=== PATIENT | male | born 1955 | race Two or more races ===

== ENCOUNTER 2024-12-03 09:13 | Inpatient (IN) | payer MEDICARE, MEDICAID, SELFPAY ==
[2024-12-03] VITALS (9 sets, daily range): BP systolic 121–154; BP diastolic 76–92; PULSE 68–99; RESP 15–99; TEMP 36.7–37; O2SAT 95–99; BMI 28.1; BMI 29.5
--- NOTE | 2024-12-03 10:06 | EDNOTE_ITS ---
ED Extremity Problem RME/HPI General Chief complaint: General Adult/[facility] Complain Stated complaint: SEVERE R) LEG CELLULITIS X 2 YRS Time Seen by Provider: 12/03/24 09:55 Arrival date/time: 12/03/24 09:13 RME / HPI RME / HPI Narrative: 69 year old male presents to the ED for evaluation of right lower extremity redness, pain, and swelling. The patient reports that these symptoms have been ongoing for approximately two years; however, he notes that the redness has worsened over the past two months. In addition to the redness, the patient reports experiencing significant pain, primarily localized behind the calf, which he describes as nerve pain. The pain is rated as moderate to severe and is aggravated by walking. The patient states that the pain was notably worse last night, prompting ED visit. No other associated symptoms. Denies fever, chills. The patient denies any trauma or injury to the affected leg. The patient has a history of similar symptoms and was previously evaluated for this issue about four months ago. At that time, he was diagnosed with cellulitis and was prescribed a course of antibiotics, which he completed. However, he reports that his symptoms have recurred, and despite the prior treatment, the condition has persisted and worsened over time. Related Data Previous Rx's ?Medication ?Instructions ?Recorded docusate sodium 100 mg capsule 100 mg PO BID #40 caps 05/25/22 (Colace) hydrocodone 5 mg-acetaminophen 325 1 tab PO Q6H PRN pa in (scale score 05/25/22 mg tablet 7-10) #28 tabs ibuprofen 600 mg tablet 600 mg PO Q8H PRN pain (scal e 05/25/22 score 4-6) #15 tabs albuterol sulfate 90 mcg/actuation 2 puff INH TID #1 i nh 06/01/22 aerosol inhaler clindamycin HCl 300 mg capsule 300 mg PO Q8H #12 caps 06/01/22 lactobacillus combination no.9 4 4,000 mmu cells PO QD AY #7 caps 06/01/22 billion cell capsule (Adult 50 Plus Probiotic) acetaminophen 500 mg capsule 1,000 mg (2 x 500 mg) PO TID #30 08/30/23 caps dextromethorphan-guaifenesin 10 10 ml PO Q8H PRN cough #500 mL 08/30/23 mg-100 mg/5 mL oral liquid clindamycin HCl 300 mg capsule 300 mg PO QID #40 caps 11/08/23 Allergies Allergy/AdvReac Type Severity Reaction Status Date / Time aspirin Allergy Severe rash Verified 12/03/24 10:38 Penicillins Allergy Severe hives Verified 12/03/24 10:38 Review of Systems Review of Systems Narrative Review of Systems: GEN: No fever, no chills, no weight loss EYES: No discharge, no visual changes, no pain HEENT: No ear pain, no congestion, no sore throat PULM: No shortness of breath, no cough, no congestion CV: No chest pain, no dyspnea on exertion, no palpitations GI: No nausea, no vomiting, no diarrhea, no pain, no constipation : No frequency, no urgency, no dysuria MUSC/SKEL: +SEE HPI, no back pain SKIN: No rash NEURO: No weakness, no headache Past Medical History Past Medical History GASTROINTESTINAL: Positive Gastrointestinal Disorders, Hepatitis and Ulcer ENDOCRINE: Positive Hypoglycemia PSYCHO/SOCIAL: Positive Depression OTHER HISTORY: Positive Hospitalization Family History FAMILY HISTORY: Positive Family Cardiac Disorders and Family Cancer Surgical History SURGICAL: Positive Abdominal Surgery Social History SMOKING STATUS: Current every day smoker 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 OCCUPATION: retired automobile glass technician ED Exam General General appearance: Present alert and in no apparent distress Head Head exam: Present atraumatic, normocephalic and normal inspection Eye Eye exam: Present normal appearance and EOMI ENT ENT exam: Present normal exam, normal oropharynx and mucous membranes moist Neck Neck exam: Present normal inspection and full ROM Chest Chest inspection: Present normal inspection and symmetric chest wall rise Respiratory Respiratory exam: Present normal lung sounds bilaterally Cardiovascular Cardiovascular exam: Present regular rate and normal rhythm Abdominal Exam Abdominal exam: Present soft and other (healed hernia scar on the right lower abdomen) exam: Present normal testicular lie and other (uncircumcised) Extremities Exam Extremities exam: Present other (venous stasis changes BLE R>L, RLE with venous stasis changes being thickened, bright erythema with heat to the posterior distal thigh, tenderness to palpation of the superior anterior RLE) Course Quality Measures none Orders Category Date Time Status COVID-19 Screening Questionnaire NOW Care 12/03/24 13:34 Active Decision to Admit X1 Care 12/03/24 13:34 Completed Insert IV NOW Care 12/03/24 09:40 Active US venous doppler LE RT Stat Exams 12/03/24 10:36 Completed XR tibia fibula RT 2V Stat Exams 12/03/24 10:36 Completed Blood Culture (Lab) Stat Lab 12/03/24 10:31 Received CBC Stat Lab 12/03/24 10:31 Completed CMP [Comprehensive Metabolic Panel] Stat Lab 12/03/24 10:31 Completed CRP [C-Reactive Protein] Stat Lab 12/03/24 10:31 Completed Drug Screen,Urine Stat Lab 12/03/24 13:30 Completed ESR [Sed Rate (ESR)] Stat Lab 12/03/24 10:31 Completed Lactic Acid [Lactate (Lactic Acid)] Stat Lab 12/03/24 10:31 Completed PT [Prothrombin Time with INR] Stat Lab 12/03/24 10:31 Completed PTT [Partial Thromboplastin Time] Stat Lab 12/03/24 10:31 Completed Procalcitonin Stat Lab 12/03/24 10:31 Completed Clindamycin 900Mg Ivpb [Cleocin/D5w Ivpb] 900 mg Med 12/03/24 10:36 Discontinued Pre-Mixed [Pre-mixed Bag] 1 bag IV X1 Vancomycin Inj 1,500 mg Med 12/03/24 10:36 Discontinued Sodium Chloride 0.9% 500 ml [Ns] 500 ml IV X1 Vital Signs Vital signs: Vital Signs Temperature 98.1 F 12/03/24 09:34 Pulse Rate 99 12/03/24 09:34 Respiratory Rate 18 12/03/24 09:34 Blood Pressure 131/85 H 12/03/24 09:34 Pulse Oximetry (%) 97 12/03/24 09:34 Oxygen Delivery Method Room Air 12/03/24 09:34 Pulse ox is 97% on room air which is adequate. Extremity Problem MDM Narrative MDM Narrative:: Rosey Sidhu am scribing for and in the presence of Dr. Silva. Patient data External records reviewed:: [facility] previous records (I reviewed ED visit on 07/24/2024 for cellulitis ) Clinical information provided by:: patient Social determinants that could affect healthcare access:: none Patient has the following chronic illnesses:: hx of cellulitis in the RLE, no other chronic medical hx reported How is presenting disease/condition affected by chronic disease/condition?: exacerbated by Evaluation data The following diagnostics were reviewed and interpreted by me:: lab results and radiology exam(s) Lab and/or radiology exams considered but not ordered:: None Interpretation Summary: Ordering Physician: Singh Silva MD Date of Service: 12/03/24 Procedure(s): XR tibia fibula RT 2V Accession Number(s): [id number] cc: Singh Silva MD; Tim Perales MD; Negro Ramos MD~ Examination: Tibia-Fibula, right , 2 views Technique: Tibia-fibula AP lateral 2 views Date and time of exam: December 03, 2024 0946 hours Comparison November 08, 2023 INDICATIONS: Right leg pain today. FINDINGS: Moderate osteopenia Bimalleolar soft tissue swelling No fracture. No cortical bone destruction IMPRESSION: No fracture. No cortical bone destruction Dictated By: Negro Ramos MD Signed By: <Electronically signed by Negro Ramos MD in [place]> 12/03/24 1108 ========= Ordering Physician: Singh Silva MD Date of Service: 12/03/24 Procedure(s): US venous doppler LE RT Accession Number(s): [id number] cc: Singh Silva MD; Tim Perales MD; Negro Ramos MD~ Examination: Duplex scan of the lower extremity, unilateral right Date and time of exam: December 03, 2024 at 1114 hours INDICATIONS: Lower leg pain and discoloration beginning 2 months ago Technique: Duplex scan of the extremity veins using B-mode/grayscale imaging and Doppler spectral analysis and color flow Attention is directed to internal echogenicity, compression and augmentation involving these veins, color flow assessment, spectral analysis Findings: Major deep venous structures in the extremity demonstrate normal course and caliber. There is no evidence of deep vein thrombosis. Normal color flow and spectral analysis Impression: Negative for DVT.. Dictated By: Negro Ramos MD Signed By: <Electronically signed by Negro Ramos MD in [place]> 12/03/24 1151 Medications / Prescriptions Medications or Prescriptions considered but not ordered:: None Medication administrations:: Medication Administration History Acetaminophen (Acetaminophen 325 Mg Tablet) 650 mg PO Q6H PRN PRN Reason: Fever >101.5 Stop: 01/02/25 13:54 Acetaminophen (Acetaminophen 325 Mg Tablet) 650 mg PO Q6H PRN PRN Reason: PAIN SCALE 1-3 (mild Stop: 01/02/25 13:54 Docusate Sodium (Docusate Sod 100 Mg Capsule) 100 mg PO QDAY SRAVANTHI; Protocol Stop: 01/03/25 08:59 Heparin Sodium (Porcine) (Heparin Sod Inj 5000 Unit/Ml Vial) 5,000 unit SC Q8HR SRAVANTHI Stop: 12/17/24 13:59 Last Admin: 12/03/24 14:13 Dose: 5,000 unit Documented By: BD Co-signed By: EVON Ceftriaxone Sodium/Dextrose (Rocephin/D5w 1gm Iv Premix) 50 mls @ 100 mls/hr IV QDAY SRAVANTHI Stop: 12/10/24 13:59 Last Infusion: 12/03/24 15:20 Dose: Infused Documented By: Admin: 12/03/24 14:34 Dose: 100 mls/hr Documented By: NAHEED Nicotine (Nicotine Patch 21 Mg/24 Hr Patch.Td24) 21 mg TOP QDAY SRAVANTHI Stop: 01/02/25 14:29 Last Admin: 12/03/24 14:45 Dose: 21 mg Documented By: NAHEED Ondansetron HCl (Ondansetron Inj 2 Mg/Ml Inj 2 Ml) 4 mg IV Q6H PRN; Protocol PRN Reason: NAUSEA OR VOMITING Stop: 01/02/25 13:54 Pharmacy Consult (Vancomycin Pharmacy To Dose 1 Each Each) 1 each IV QDAY PRN PRN Reason: CONSULT Stop: 01/03/25 08:59 Discontinued Medications Clindamycin Phosphate 900 mg/ (IV Miscellaneous Supplies) 50 mls @ 50 mls/hr IV X1 ONE Stop: 12/03/24 11:35 Last Infusion: 12/03/24 11:41 Dose: Infused Documented By: Admin: 12/03/24 11:06 Dose: 50 mls/hr Documented By: [facility]ST Vancomycin HCl 1,500 mg/ (Sodium Chloride) 500 mls @ 240 mls/hr IV X1 ONE Stop: 12/03/24 12:40 Last Infusion: 12/03/24 14:27 Dose: Infused Documented By: Admin: 12/03/24 11:41 Dose: 240 mls/hr Documented By: [facility] Influenza Virus Vaccine Quadrival (Influenza Virus Quadrivalent 0.5 Ml Syringe) 0.5 ml IMi .ONCE ONE Stop: 12/03/24 16:41 See above Consultations Consultation(s) initiated? (list below): Yes Consultation #1 (Physician, Specialty, Details): I spoke with resident Dr. Ureña working with Dr. Holt. Discussed patients PMHx, HPI, ED course, exam findings, labs, and radiology results. Will come evaluate the patient in the ED. Time: 13:04 Diagnosis Extremity Problem Differential Diagnosis: gout, cellulitis, superficial thrombophlebitis, lower extremity edema and deep vein thrombosis of lower extremity Most likely diagnosis given after review of the tests above:: RLE cellulitis RLE pain venous dermatitis BLE, R>L Admission Indicated Admission indicated?: indicated Admission Request Was there a request for admission?: Yes Admission Attestation Admission request attestation: Discussed case with [] from Hospitalist service regarding admission. Discussed patients ED course, exam findings, labs, and radiology results. The Hospitalist [agrees,declines] to accept the patient for admission. Disposition Plan Disposition Plan: Admit Discharge Plan Plan Patient Disposition: Admit Acute Care w/in Hospital Problem List Clinical Impression: Cellulitis of right lower extremity, Lower extremity pain, right, Venous stasis dermatitis of both lower extremities
--- NOTE | 2024-12-03 10:17 | PC.NURSE ---
PT DOES NOT WANT IN NARCOTIC PAIN MEDS DUE TO HX DRUG USE AND IS IN RECOVERY
--- NOTE | 2024-12-03 10:35 | PC.NURSE ---
PT CAME IN THROUGH LOBBY DUE TO REDNESS TO RIGHT LOWER LEG, HE HAS SOME VENOUS STASIS TO LOWER LEG WITH SCALING AND DISCOLOARITION, LEG IS RED AND WARM TO TOUCH WITH SWELLING THAT EXTENDS UP TO KNEE
--- NOTE | 2024-12-03 10:36 | XR_ITS ---
Examination: Tibia-Fibula, right , 2 views Technique: Tibia-fibula AP lateral 2 views Date and time of exam: December 03, 2024 0946 hours Comparison November 08, 2023 INDICATIONS: Right leg pain today. FINDINGS: Moderate osteopenia Bimalleolar soft tissue swelling No fracture. No cortical bone destruction IMPRESSION: No fracture. No cortical bone destruction
--- NOTE | 2024-12-03 10:36 | XR_ITS ---
Examination: Duplex scan of the lower extremity, unilateral right Date and time of exam: December 03, 2024 at 1114 hours INDICATIONS: Lower leg pain and discoloration beginning 2 months ago Technique: Duplex scan of the extremity veins using B-mode/grayscale imaging and Doppler spectral analysis and color flow Attention is directed to internal echogenicity, compression and augmentation involving these veins, color flow assessment, spectral analysis Findings: Major deep venous structures in the extremity demonstrate normal course and caliber. There is no evidence of deep vein thrombosis. Normal color flow and spectral analysis Impression: Negative for DVT..
[2024-12-03 10:40] LABS: Lactate (Lactic Acid) 1.6 mMol/L (0.4-2.0)
[2024-12-03 10:46] LABS: Basophils % (Auto) 0 % (0-2.5); Eosinophils % (Auto) 0 % (0-10); Hematocrit 42.9 % (41.0-53.0); Hemoglobin 14.5 g/dL (13.5-16.0); Immature Granulocytes % (Auto) 0 % (0-0); Immature Granulocytes Auto 0.03 Thou/mm3 (0.00-0.00); Lymphocytes # (Auto) 1.2 Thou/mm3 (1.0-4.8); Lymphocytes % (Auto) 10 % (10-50); Mean Corpuscular HGB Conc 33.8 g/dl (31.0-37.0); Mean Corpuscular Hemoglobin 30.5 pg (25.0-35.0); Mean Corpuscular Volume 90 fL (80-100); Monocytes # (Auto) 0.8 Thou/mm3 (0.0-0.8); Monocytes % (Auto) 6 % (0-12); Neutrophils # (Auto) 10.4 Thou/mm3 (1.8-7.7); Neutrophils % (Auto) 84 % (37-80); Nucleated Red Blood Cell % 0 /100 WBC (0); Platelet Count 167 Thou/mm3 (140-440); RDW Standard Deviation 45.3 fL (35.1-43.9); Red Blood Count 4.75 Miln/mm3 (4.50-5.90); White Blood Count 12.5 Thou/mm3 (3.8-10.6)
[2024-12-03 10:57] LABS: INR 1.1 (0.9-1.3); Partial Thromboplastin Time 27.6 Seconds (22.0-36.0); Prothrombin Time 11.7 Seconds (9.0-12.2)
[2024-12-03] MEDS: CLINDAMYCIN 900MG IVPB 900 MG in PRE-MIXED 1 BAG 50 MG IV (11:06)
[2024-12-03 11:08] LABS: Alanine Aminotransferase 20 U/L (10-49); Albumin, Serum 3.9 gm/dL (3.4-4.8); Albumin/Globulin Ratio 1.1 (1.2-2.2); Alkaline Phosphatase 175 U/L (46-116); Anion Gap 8 (7-16); Aspartate Amino Transferase 26 U/L (0-34); BUN/Creatinine Ratio 10 Ratio (12-20); Bilirubin,Total 0.9 mg/dL (0.3-1.2); Blood Urea Nitrogen 13 mg/dL (9-23); C-Reactive Protein 6.1 mg/dL (0.0-0.9); Calcium 9.4 mg/dL (8.3-10.6); Calcium (Corrected) 9.5 mg/dL (8.5-10.1); Carbon Dioxide 27.4 mMol/L (20.0-31.0); Chloride 99 mMol/L (98-107); Creatinine (Component) 1.3 mg/dL (0.6-1.3); Estimated Creatinine Clearance 53.3 mL/min (>60); Globulin 3.4 gm/dL (2.3-3.5); Glucose 110 mg/dL (74-106); Osmolality,Calculated 269 (275-295); Potassium 3.3 mMol/L (3.4-5.1); Procalcitonin 0.13 ng/ml (0.0-0.49); Sodium 134 mMol/L (136-145); Total Protein 7.3 gm/dL (5.7-8.2); eGFR 59 See Note
[2024-12-03 11:26] LABS: Sed Rate (ESR) 41 mm/hr (0-20)
[2024-12-03] MEDS: Vancomycin Inj 1,500 MG in SODIUM CHLORIDE 0.9% 500 ML 500 ML 240 MG IV (11:41)
[2024-12-03 13:55] LABS: Amphetamine/Methamp Scrn,U Positive (Negative); Barbiturate Screen,Urine Negative (Negative); Benzodiazepines Screen,Urine Negative (Negative); Benzoylecgonine Screen, Ur Negative (Negative); Fentanyl Screen,Urine Negative (Negative); Opiate Screen,Urine Negative (Negative); THC Screen,Urine Positive (Negative)
--- NOTE | 2024-12-03 14:11 | ESHP_ITS ---
<Statement entered by Dbeora Juarez MD - 12/04/24 05:45> Patient is a 69-year-old male with past medical history significant for polysubstance use including remote history of IV heroin, current use of methamphetamine, alcohol, marijuana, tobacco, venous insufficiency, and recurrent lower extremity cellulitis came to the ED with chief complaint of worsening lower extremity cellulitis and as a result has not been able to bear weight on his right lower extremity. Patient has been hopping around and do his daily activities. Patient states that he has been on and off his antibiotics since July with clindamycin however, patient's cellulitis has not improved. Patient presented with tachycardia otherwise vital signs hemodynamically stable. Labs significant for elevated ESR and CRP. U tox positive for methamphetamine and marijuana. X-ray of his tibia and fibula negative for any fractures and any possible signs of early osteomyelitis. Lower extremity ultrasound was also negative for any DVTs. Patient will be admitted to the hospital for further management of right lower extremity cellulitis in the setting of recent outpatient failed management requiring IV antibiotics. Will order PT and follow- up cultures I discussed with and supervised the security intern physician who took care of this patient. I personally saw and examined the patient and discussed the assessment and plan with the entire medicine team, including my attending , I agree with most of the assessment and plan as documented below Debora Juarez M.D. PGY-2 Disclaimer: Despite multiple revisions, due to the dictation software being used, the document bellow may not be free of grammatical errors including phonetic/typographic errors. However, this does not deter from our commitment to providing health care in the patient's best interest in mind. <Statement entered by Janet Silverio MD - 12/03/24 18:46> I discussed with and supervised the security intern physician who took care of this patient. I personally saw and examined the patient and discussed the assessment and plan with the entire medicine team, including my attending Dr. Holt, I agree with the assessment and plan as documented below Patient seen and examined at bedside today. Labs and imaging reviewed. 69-year-old man with past medical history of polysubstance abuse, venous insufficiency, recurrent lower extremity cellulitis came to the ED with chief complaint of worsening lower extremity cellulitis and been unable to walk. Patient stated he has been having lower extremity cellulitis on the right lower extremity for which he came to the ED 1 month ago and he received p.o. antibiotics clindamycin otherwise he stated that he became worse and that he is not able to walk for he decided to come to the ED. On admission patient blood pressure was 131/85, mildly tachycardic with a heart rate of 99 respiratory of 18 afebrile saturating 97% on room air. Significant labs showed leukocytosis, ESR 41 CRP of 6.1 and U-Tox was positive for meth and THC. Imaging show x-ray tibia and fibula were negative for osteomyelitis or fractures. Lower extremity ultrasound was negative for DVT. Patient was started on IV broad-spectrum antibiotics ceftriaxone and vancomycin and patient will be admitted for further treatment and management of right lower extremity cellulitis. Janet Silverio MD PGY-3 Disclaimer: Despite multiple revisions, due to the dictation software being used, the document bellow may not be free of grammatical errors including phonetic/typographic errors. However, this does not deter from our commitment to providing health care in the patient's best interest in mind. Documentation for date of: 12/03/24 HPI History of Present Illness Chief complaint: Cellulitis History of present illness: 69-year-old male with past medical history of polysubstance abuse who came to the ED due to worsening cellulitis. Patient has had recent ER visits for worsening cellulitis. Today 12/03/2024 however patient has been having increased swelling and redness in the right lower extremity and now unable to walk and he decided to come to the ED. Pain is more pronounced on the Right knee area is warm tender to touch however not red rest of the right lower extremity warm, swollen, red and tender. Patient at this time denies fevers, chills, nausea, vomiting, shortness of breath, chest pain. Patient will be admitted for right lower extremity cellulitis after failing outpatient antibiotic therapy. ED course: Vitals on arrival BP 10[birth year]17/1984, HR 99, RR 18, temp 98.1, saturating 97% on room air. Labs significant for leukocytosis, ESR 41, sodium 134, potassium 3.3, glucose 110, alk phos 175, CRP 6.1, U tox is positive for methamphetamine and THC. Tibia-fibula x-ray negative for osteo myelitis, no fractures, venous Doppler ultrasound negative for DVT. In the ED patient received clindamycin and vancomycin. PMHx: as above SxHx: Hernia repair Social Hx: Quit heroin use about 25 years ago, smokes 5 to 6 cigarettes every day since age 9, smokes methamphetamine every other day, occasionally drinks 2- 3 beers once a week. FHx: Unknown Allergies: Penicillin and aspirin (both cause hives) Review of Systems Review of Systems Narrative Review of Systems: Narrative ROS GENERAL: Denies fevers/chills or diaphoresis. HEENT: Denies headache or visual/hearing changes. Denies nasal discharge. NEURO: Denies unusual weakness or difficulty speaking. CARDIO: Denies chest pain or palpitations. PULM: Denies SOB, coughing, or wheezing. GI: Denies abdominal pain, N/V/C/D/reflux/gas, bright red blood per rectum or melena. Reports having BMs. URO: Denies burning/itching/pain/urinary changes. SPORTS PHYSIOTHERAPIST: Denies menstrual changes, hot flashes. MSK/EXT/SKIN: + painin RLE, + issues/changes in upper or lower extremities, itchiness, or superficial pain. PSYCH: Cooperative, pleasant mood & affect. The rest of the review of systems is otherwise negative. Exam Vital Signs Temp Pulse Resp BP Pulse Ox O2 Del Method 98.0 F 68 17 121/76 96 Room Air 12/03/24 12:16 12/03/24 12:16 12/03/24 12:16 12/03/24 12:16 12/03/24 12:16 12/03/24 12:16 Narrative Exam Physical Exam GENERAL: NAD, AAOx3, adentulous HEENT: Moist mucosa. Eyes open, symmetrical, & clear CARDIO: Heart RRR, no obvious murmurs PULM: No noted coughing/dyspnea CTA B/L, no R/W/R GI: Abdomen soft, nondistended, no pain on palpation. BSx4 SKIN/MSK/EXT: B/L lower extremity skin changes with crusting and graying, RLE warm, red, swollen and tender to touch more pronounced in the knee area, no pain on palpation. Pedal pulses present B/L NEURO: AAOx3, no focal neuro deficits, able to move all 4 extremities Results: Labs 12/04/24 04:44 12/04/24 04:44 Labs: Short CBC 12/03/24 Range/Units 10:31 WBC 12.5 H (3.8-10.6) Thou/mm3 Hgb 14.5 (13.5-16.0) g/dL Hct 42.9 (41.0-53.0) % Plt Count 167 (140-440) Thou/mm3 BMP 12/03/24 10:31 Sodium 134 L Potassium 3.3 L Chloride 99 Carbon Dioxide 27.4 BUN 13 Creatinine 1.3 Glucose 110 H Calcium 9.4 Liver Function 12/03/24 Range/Units 10:31 Total Bilirubin 0.9 (0.3-1.2) mg/dL AST 26 (0-34) U/L ALT 20 (10-49) U/L Alkaline Phosphatase 175 H (46-116) U/L Albumin 3.9 (3.4-4.8) gm/dL Quality Measures Quality Measures none Advance care planning discussed with:: patient Medications Home Medications and Allergies Allergies Allergy/AdvReac Type Severity Reaction Status Date / Time aspirin Allergy Severe rash Verified 12/03/24 10:38 Penicillins Allergy Severe hives Verified 12/03/24 10:38 Visit Medications Acetaminophen (Acetaminophen 325 Mg Tablet) 650 mg PO Q6H PRN PRN Reason: Fever >101.5 Stop: 01/02/25 13:54 Acetaminophen (Acetaminophen 325 Mg Tablet) 650 mg PO Q6H PRN PRN Reason: PAIN SCALE 1-3 (mild Stop: 01/02/25 13:54 Docusate Sodium (Docusate Sod 100 Mg Capsule) 100 mg PO QDAY [facility]; Protocol Stop: 01/03/25 08:59 Heparin Sodium (Porcine) (Heparin Sod Inj 5000 Unit/Ml Vial) 5,000 unit SC Q8HR [facility] Stop: 12/17/24 13:59 Ceftriaxone Sodium/Dextrose (Rocephin/D5w 1gm Iv Premix) 50 mls @ 100 mls/hr IV QDAY SRAVANTHI Stop: 12/10/24 13:59 Ondansetron HCl (Ondansetron Inj 2 Mg/Ml Inj 2 Ml) 4 mg IV Q6H PRN; Protocol PRN Reason: NAUSEA OR VOMITING Stop: 01/02/25 13:54 Pharmacy Consult (Vancomycin Pharmacy To Dose 1 Each Each) 1 each IV QDAY PRN PRN Reason: CONSULT Stop: 01/03/25 08:59 Discontinued Medications Clindamycin Phosphate 900 mg/ (IV Miscellaneous Supplies) 50 mls @ 50 mls/hr IV X1 ONE Stop: 12/03/24 11:35 Last Infusion: 12/03/24 11:41 Dose: Infused Vancomycin HCl 1,500 mg/ (Sodium Chloride) 500 mls @ 240 mls/hr IV X1 ONE Stop: 12/03/24 12:40 Last Admin: 12/03/24 11:41 Dose: 240 mls/hr Assessment & Plan Plan 69-year-old male with past medical history of polysubstance abuse who came to the ED due to worsening cellulitis. Patient has had recent ER visits for worsening cellulitis. Today 12/03/2024 however patient has been having increased swelling and redness in the right lower extremity and now unable to walk and he decided to come to the ED. Pain is more pronounced on the Right knee area is warm tender to touch however not red rest of the right lower extremity warm, swollen, red and tender. Patient at this time denies fevers, chills, nausea, vomiting, shortness of breath, chest pain. Patient will be admitted for right lower extremity cellulitis after failing outpatient antibiotic therapy. #Right lower extremity cellulitis, failed outpatient therapy Patient has had previous ER visits for cellulitis however at this time has progressed and worsened tried antibiotics twice and continued to worsen On admission patient had leukocytosis and on physical exam right lower extremity red, warm, tender to touch, swollen and unable to bear weight on joint. venous US negative for DVT tibiofibular XR negative for fracutres, osteomyelitis ? On ceftriaxone ? On vancomycin ? Follow-up blood cultures ? Physical therapy referral #Polysubstance abuse Patient currently smokes methamphetamine every other day, cigarettes every day ? Consider high school social studies tutor referral ? Nicotine patch provided Case discussed with my senior Dr. Juarez PGY-[address] Silverio PGY-[address] Jonathon Perales MD PGY-1 Disposition: medtele Fluids: None Feeding: regular Thrombo prophylaxis: heparin Gastric Ulcer prophylaxis: not indicated CODE STATUS: Full code Attending Provider Attestation/Addendum I have examined the patient, reviewed labs and imaging findings, discussed the case with the resident(s), and reviewed entered orders. I agree with the plan of care as outlined in this note, with these additional summaries/recommendations: Patient will be admitted for right lower extremity cellulitis. Patient failed outpatient oral antibiotic course. Leukocytosis present. Start IV antibiotics and blood cultures taken. Follow-up results when available. Venous ultrasound negative for deep vein thrombosis and x-ray showed no cortical bone destruction. Urine toxicology positive for methamphetamines and THC and we will grief counsellor patient on substance abuse. donor services team leader referral. Mild hypokalemia present and replacement given. Previous A1c 6.4% indicating prediabetes and we will grief counsellor patient on lifestyle interventions. Repeat hematology and chemistry panel in AM. Dr. Jonathon MD
[2024-12-03] MEDS: HEPARIN SOD INJ 5000 UNIT/ML VIAL SC ×2 (14:13→21:10)
[2024-12-03] MEDS: cefTRIAXone/D5w 1gm IV premix 50 ML IV (14:34)
--- NOTE | 2024-12-03 14:35 | PC.LAC ---
called pharmacy for nicotine patch
[2024-12-03] MEDS: NICOTINE PATCH 21 MG/24 HR PATCH.TD24 TOP (14:45)
[2024-12-03] MEDS: HYDROcodone/APAP 5/325 TABLET 1 TAB PO (19:51)
[2024-12-04] VITALS (8 sets, daily range): BP systolic 125–141; BP diastolic 79–84; PULSE 71–94; RESP 14–97; TEMP 36.1–36.6; O2SAT 94–96
[2024-12-04] MEDS: HYDROcodone/APAP 5/325 TABLET 1 TAB PO ×3 (03:41→21:17)
[2024-12-04] MEDS: HEPARIN SOD INJ 5000 UNIT/ML VIAL SC ×3 (05:24→21:18)
[2024-12-04 06:12] LABS: Basophils % (Auto) 0 % (0-2.5); Eosinophils # (Auto) 0.1 Thou/mm3 (0.0-0.5); Eosinophils % (Auto) 1 % (0-10); Hematocrit 42.6 % (41.0-53.0); Hemoglobin 14.5 g/dL (13.5-16.0); Immature Granulocytes % (Auto) 0 % (0-0); Immature Granulocytes Auto 0.02 Thou/mm3 (0.00-0.00); Lymphocytes # (Auto) 1.1 Thou/mm3 (1.0-4.8); Lymphocytes % (Auto) 16 % (10-50); Mean Corpuscular Hemoglobin 30.4 pg (25.0-35.0); Mean Corpuscular Volume 89 fL (80-100); Monocytes # (Auto) 0.6 Thou/mm3 (0.0-0.8); Monocytes % (Auto) 9 % (0-12); Neutrophils # (Auto) 4.9 Thou/mm3 (1.8-7.7); Neutrophils % (Auto) 73 % (37-80); Nucleated Red Blood Cell % 0 /100 WBC (0); Platelet Count 136 Thou/mm3 (140-440); Red Blood Count 4.77 Miln/mm3 (4.50-5.90); White Blood Count 6.7 Thou/mm3 (3.8-10.6)
[2024-12-04 06:48] LABS: Alanine Aminotransferase 19 U/L (10-49); Albumin, Serum 3.4 gm/dL (3.4-4.8); Albumin/Globulin Ratio 1.1 (1.2-2.2); Alkaline Phosphatase 149 U/L (46-116); Anion Gap 8 (7-16); Aspartate Amino Transferase 21 U/L (0-34); BUN/Creatinine Ratio 14 Ratio (12-20); Bilirubin,Total 0.4 mg/dL (0.3-1.2); Blood Urea Nitrogen 11 mg/dL (9-23); Calcium 8.7 mg/dL (8.3-10.6); Calcium (Corrected) 9.2 mg/dL (8.5-10.1); Carbon Dioxide 24.8 mMol/L (20.0-31.0); Chloride 103 mMol/L (98-107); Creatinine (Component) 0.8 mg/dL (0.6-1.3); Estimated Creatinine Clearance 85.6 mL/min (>60); Globulin 3.2 gm/dL (2.3-3.5); Glucose 170 mg/dL (74-106); Magnesium 1.9 mg/dL (1.6-2.6); Osmolality,Calculated 275 (275-295); Phosphorous 2.4 mg/dL (2.4-5.1); Potassium 3.8 mMol/L (3.4-5.1); Sodium 136 mMol/L (136-145); Total Protein 6.6 gm/dL (5.7-8.2); eGFR > 60 See Note
[2024-12-04] MEDS: NICOTINE PATCH 21 MG/24 HR PATCH.TD24 TOP (09:22)
[2024-12-04] MEDS: DOCUSATE SOD 100 MG CAPSULE PO (09:23)
[2024-12-04] MEDS: cefTRIAXone/D5w 1gm IV premix 50 ML IV (09:23)
--- NOTE | 2024-12-04 09:53 | PC.SS ---
Initial assessment: this is 69 year old male, appears alert/oriented. Patient reports living at home with daughter, Kathryn. Patient confirmed demographic information. Patient reports being independent with ambulation. Denies the use of DME at home. Patient informs he has not seen doctor of followed by a PCP in about five years now. Last time was at [facility] in [place] [facility]. Patient reports visiting [facility] about six months ago for similar reasons. Patient informs he would like to return home upon discharge and reports family is able to transport home. Patient was provided with community resources including substance use resources and explained how services could be accessed. Patient currently pending PT evaluation and aware. Patient assigned his daughter, Lucina as his emergency contact. D/c plan: Home Next of kin: Lucina
[2024-12-04] MEDS: MORPHINE SULF INJ 10 MG/ML VIAL IVP (10:48)
[2024-12-04] MEDS: PANTOPRAZOLE 40 MG TABLET PO (10:48)
[2024-12-04] MEDS: VANCOMYCIN/NS 1 GM IVPB 200 ML IV ×2 (10:48→21:17)
--- NOTE | 2024-12-04 12:23 | ESPR_ITS ---
<Statement entered by Debora Juarez MD - 12/04/24 17:10> Patient seen and examined at bedside. No acute overnight events reported. Continue with IV Abx and pending PT recs. Patient also complaining of pain, will continue with oral pain medications. Patient also seen presenting initial signs of methamphetamine withdrawal, and will consider Benzo PRN. I discussed with and supervised the internal sales engineer physician who took care of this patient. I personally saw and examined the patient and discussed the assessment and plan with the entire medicine team, including my attending Dr. Holt, I agree with most of the assessment and plan as documented below Debora Juarez M.D. PGY-2 Documentation for date of: 12/04/24 Subjective Subjective Interval history: Patient seen today at the bedside fine awake, alert, oriented x 3. No overnight events reported. States remarkable improvement in right lower extremity redness and swelling. States he is able to walk now. Patient also stating that he might be withdrawing from methamphetamine use. Instructed patient to give starting to feel any symptoms of withdrawal we will consider giving a short acting benzodiazepine. At this time we will continue for 1 more day of IV antibiotics and will possibly discharge in the next 24-48 hours. Exam Vital Signs Temp Pulse Resp BP Pulse Ox O2 Del Method 97.4 F 91 17 135/84 H 94 L Room Air 12/04/24 08:00 12/04/24 08:00 12/04/24 08:00 12/04/24 08:00 12/04/24 08:00 12/04/24 08:00 Narrative Exam Physical Exam GENERAL: NAD, AAOx3, adentulous HEENT: Moist mucosa. Eyes open, symmetrical, & clear CARDIO: Heart RRR, no obvious murmurs PULM: No noted coughing/dyspnea CTA B/L, no R/W/R GI: Abdomen soft, nondistended, no pain on palpation. BSx4 SKIN/MSK/EXT: B/L lower extremity skin changes with crusting and graying, RLE warm, red, swollen and tender to touch more pronounced in the knee area- improving, Pedal pulses present B/L NEURO: AAOx3, no focal neuro deficits, able to move all 4 extremities Objective Labs 12/04/24 04:44 12/04/24 04:44 Labs: Laboratory Results - last 24 hr 12/03/24 12/04/24 13:30 04:44 WBC 6.7 D RBC 4.77 Hgb 14.5 Hct 42.6 MCV 89 MCH 30.4 MCHC 34.0 RDW Std Deviation 44.0 H Plt Count 136 L D Neut % (Auto) 73 Lymph % (Auto) 16 Pacific % (Auto) 9 Eos % (Auto) 1 Baso % (Auto) 0 Neut # (Auto) 4.9 Lymph # (Auto) 1.1 [place] # (Auto) 0.6 Eos # (Auto) 0.1 Baso # (Auto) 0.0 Immature Gran # (Auto) 0.02 H Absolute Nucleated RBC 0.00 Immature Gran % 0 Nucleated RBC % 0 Sodium 136 Potassium 3.8 D Chloride 103 Carbon Dioxide 24.8 Anion Gap 8 BUN 11 Creatinine 0.8 D Estim Creat Clear Calc 85.6 eGFR > 60 BUN/Creatinine Ratio 14 Glucose 170 H D Calculated Osmolality 275 Calcium 8.7 Corrected Calcium 9.2 Phosphorus 2.4 Magnesium 1.9 Total Bilirubin 0.4 D AST 21 ALT 19 Alkaline Phosphatase 149 H D Total Protein 6.6 Albumin 3.4 D Globulin 3.2 Albumin/Globulin Ratio 1.1 L Urine Opiates Screen Negative Urine Fentanyl Screen Negative Ur Barbiturates Screen Negative U Amphetamin/Meth Scrn Positive A U Benzodiazepines Scrn Negative U Cocaine Metab Screen Negative U Marijuana (THC) Screen Positive A Quality Measures Quality Measures none Advance care planning discussed with:: patient Assessment & Plan Assessment Current Active Medications: Generic Name Dose Route Start Last Admin Trade Name Freq PRN Reason Stop Dose Admin Acetaminophen 650 mg 12/03/24 13:55 Acetaminophen 325 Mg Tablet PO 01/02/25 13:54 Q6H PRN Fever >101.5 Acetaminophen 650 mg 12/03/24 13:55 Acetaminophen 325 Mg Tablet PO 01/02/25 13:54 Q6H PRN PAIN SCALE 1-3 (mild Hydrocodone Bitart/Acetaminophen 1 tab 12/03/24 19:35 12/04/24 03:41 Hydrocodone/Apap 5/325 Tablet PO 12/08/24 19:34 1 tab Q6HR PRN Administration PAIN SCALE 4-6 (Moderate Docusate Sodium 100 mg 12/04/24 09:00 12/04/24 09:23 Docusate Sod 100 Mg Capsule PO 01/03/25 08:59 100 mg QDAY SRAVANTHI Administration Protocol Heparin Sodium (Porcine) 5,000 unit 12/03/24 14:00 12/04/24 05:24 Heparin Sod Inj 5000 Unit/Ml Vial SC 12/17/24 13:59 5,000 unit Q8HR SRAVANTHI Administration Ceftriaxone Sodium/Dextrose 50 mls @ 100 mls/hr 12/03/24 14:00 12/04/24 09:23 Rocephin/D5w 1gm Iv Premix IV 12/10/24 13:59 100 mls/hr QDAY SRAVANTHI Administration Vancomycin/Sodium Chloride 200 mls @ 120 mls/hr 12/04/24 10:00 12/04/24 10:48 Vancomycin/Ns 1 Gm Ivpb IV 12/11/24 09:59 120 mls/hr BID@1000,2200 SRAVANTHI Administration Protocol Morphine Sulfate 1 mg 12/03/24 19:35 12/04/24 10:48 Morphine Sulf Inj 10 Mg/Ml Vial IVP 12/08/24 19:34 1 mg Q4HR PRN Administration PAIN SCALE 7-10 (Severe Nicotine 21 mg 12/03/24 14:30 12/04/24 09:22 Nicotine Patch 21 Mg/24 Hr Patch.Td24 TOP 01/02/25 14:29 21 mg QDAY SRAVANTHI Administration Ondansetron HCl 4 mg 12/03/24 13:55 Ondansetron Inj 2 Mg/Ml Inj 2 Ml IV 01/02/25 13:54 Q6H PRN NAUSEA OR VOMITING Protocol Pantoprazole Sodium 40 mg 12/04/24 10:00 12/04/24 10:48 Pantoprazole 40 Mg Tablet PO 01/03/25 09:59 40 mg QDAY SRAVANTHI Administration Pharmacy Consult 1 each 12/04/24 09:00 Vancomycin Pharmacy To Dose 1 Each Each IV 01/03/25 08:59 QDAY PRN CONSULT Plan 69-year-old male with past medical history of polysubstance abuse who came to the ED due to worsening cellulitis. Patient has had recent ER visits for worsening cellulitis. Today 12/03/2024 however patient has been having increased swelling and redness in the right lower extremity and now unable to walk and he decided to come to the ED. Pain is more pronounced on the Right knee area is warm tender to touch however not red rest of the right lower extremity warm, swollen, red and tender. Patient at this time denies fevers, chills, nausea, vomiting, shortness of breath, chest pain. Patient will be admitted for right lower extremity cellulitis after failing outpatient antibiotic therapy. #Right lower extremity cellulitis, failed outpatient therapy Patient has had previous ER visits for cellulitis however at this time has progressed and worsened tried antibiotics twice and continued to worsen On admission patient had leukocytosis and on physical exam right lower extremity red, warm, tender to touch, swollen and unable to bear weight on joint. venous US negative for DVT tibiofibular XR negative for fracutres, osteomyelitis Blood cultures negative in 24 hours ? On ceftriaxone ? On vancomycin ? Physical therapy referral #Polysubstance abuse Patient currently smokes methamphetamine every other day, cigarettes every day states some feelings of withdrawal will consider giving short acting benzos - Consider prn ativan for withdrawal of meth ? Consider social science analyst referral ? Nicotine patch provided Case discussed with my senior Dr. Juarez PGY-[address] Jonathon Perales MD PGY-1 Disposition: medtele Fluids: None Feeding: regular Thrombo prophylaxis: heparin Gastric Ulcer prophylaxis: not indicated CODE STATUS: Full code Attending Provider Attestation/Addendum I have examined the patient, reviewed labs and imaging findings, discussed the case with the resident(s), and reviewed entered orders. I agree with the plan of care as outlined in this note, with these additional summaries/recommendations: Patient seen at bedside. No acute overnight events. Patient reports improvement in his lower extremity rash. Patient admitted for right lower extremity cellulitis. Patient failed outpatient oral antibiotic course. Leukocytosis improving/resolving. Continue IV antibiotics and blood cultures show no growth at 24 hours. We will await 48 hour lio for blood cultures before patient can be safely discharged. Venous ultrasound negative for deep vein thrombosis and x- ray showed no cortical bone destruction. Urine toxicology positive for methamphetamines and THC and patient counseled on substance abuse. client services assistant referral. Okay to given low dose benzo if experiencing significant methamphetamine withdrawal. Mild hypokalemia present and replacement given. Previous A1c 6.4% indicating prediabetes. Repeat hematology and chemistry panel in AM. Dr. Jonathon MD
--- NOTE | 2024-12-04 16:47 | PC.SS ---
SS update: possible d/c home tomorrow.
--- NOTE | 2024-12-04 17:46 | PC.PT ---
PT eval only. Patient is xI and does not require skilled PT intervention at this time. Patient is safe to ambulate to the bathroom and in the halls independently.
[2024-12-05] VITALS: BP 142/87; PULSE 88; RESP 19; TEMP 36.7; O2SAT 96
[2024-12-05 04:00] VITALS: BP 138/81; PULSE 84; RESP 18; TEMP 36.6; O2SAT 96
[2024-12-05] MEDS: HEPARIN SOD INJ 5000 UNIT/ML VIAL SC (05:13)
[2024-12-05] MEDS: HYDROcodone/APAP 5/325 TABLET 1 TAB PO (05:13)
[2024-12-05 06:15] LABS: Basophils # (Auto) 0.1 Thou/mm3 (0.0-0.2); Basophils % (Auto) 1 % (0-2.5); Eosinophils # (Auto) 0.2 Thou/mm3 (0.0-0.5); Eosinophils % (Auto) 3 % (0-10); Hematocrit 43.4 % (41.0-53.0); Immature Granulocytes % (Auto) 1 % (0-0); Immature Granulocytes Auto 0.03 Thou/mm3 (0.00-0.00); Lymphocytes # (Auto) 1.8 Thou/mm3 (1.0-4.8); Lymphocytes % (Auto) 27 % (10-50); Mean Corpuscular HGB Conc 34.6 g/dl (31.0-37.0); Mean Corpuscular Hemoglobin 30.5 pg (25.0-35.0); Mean Corpuscular Volume 88 fL (80-100); Monocytes % (Auto) 15 % (0-12); Neutrophils # (Auto) 3.5 Thou/mm3 (1.8-7.7); Neutrophils % (Auto) 53 % (37-80); Nucleated Red Blood Cell % 0 /100 WBC (0); Platelet Count 139 Thou/mm3 (140-440); RDW Standard Deviation 43.1 fL (35.1-43.9); Red Blood Count 4.92 Miln/mm3 (4.50-5.90); White Blood Count 6.5 Thou/mm3 (3.8-10.6)
[2024-12-05 07:35] LABS: Alanine Aminotransferase 18 U/L (10-49); Albumin, Serum 3.2 gm/dL (3.4-4.8); Alkaline Phosphatase 136 U/L (46-116); Anion Gap 8 (7-16); Aspartate Amino Transferase 20 U/L (0-34); BUN/Creatinine Ratio 13 Ratio (12-20); Bilirubin,Total 0.3 mg/dL (0.3-1.2); Blood Urea Nitrogen 10 mg/dL (9-23); Calcium 8.3 mg/dL (8.3-10.6); Calcium (Corrected) 8.9 mg/dL (8.5-10.1); Carbon Dioxide 25.6 mMol/L (20.0-31.0); Chloride 103 mMol/L (98-107); Creatinine (Component) 0.8 mg/dL (0.6-1.3); Estimated Creatinine Clearance 85.6 mL/min (>60); Globulin 3.2 gm/dL (2.3-3.5); Glucose 110 mg/dL (74-106); Magnesium 1.9 mg/dL (1.6-2.6); Osmolality,Calculated 273 (275-295); Phosphorous 3.2 mg/dL (2.4-5.1); Potassium 4.3 mMol/L (3.4-5.1); Sodium 137 mMol/L (136-145); Total Protein 6.4 gm/dL (5.7-8.2); eGFR > 60 See Note
[2024-12-05 08:00] VITALS: BP 124/63; PULSE 83; PULSE 84; RESP 16; TEMP 36.1; O2SAT 95
[2024-12-05] MEDS: MORPHINE SULF INJ 10 MG/ML VIAL IVP (08:45)
[2024-12-05] MEDS: NICOTINE PATCH 21 MG/24 HR PATCH.TD24 TOP (08:45)
[2024-12-05] MEDS: cefTRIAXone/D5w 1gm IV premix 50 ML IV (08:45)
[2024-12-05] MEDS: DOCUSATE SOD 100 MG CAPSULE PO (08:46)
[2024-12-05] MEDS: PANTOPRAZOLE 40 MG TABLET PO (08:46)
--- NOTE | 2024-12-05 09:51 | PC.SS ---
Follow up note: SS reviewed notes and PT worked with patient last on 12-04-24. Patient was independent with ambulation. No AD. Patient ambulated over 300 feet. No Skilled need. No SNF or HH needed at this time.
[2024-12-05 09:54] LABS: Vancomycin,Trough 20.8 mcg/mL (5.0-10.0)
[2024-12-05 12:00] VITALS: BP 147/87; PULSE 83; RESP 18; TEMP 35.9; O2SAT 95
--- NOTE | 2024-12-05 14:52 | ESDS_ITS ---
Planned Discharge Date 12/05/24 DS: Providers Provider Date of admission: 12/04/24 14:50 Primary care physician: Tim Perales MD Admitting Provider: Demetrius Holt MD Attending Provider on Admission: Demetrius Holt MD Consults: 12/03/24 16:50 [facility] Referral - Transportation Routine Comment: Positive screening for transportation needs. 12/04/24 09:00 Referral Physical Therapy Stat Comment: Physician Instructions: Attending Provider on DC: Demetrius Holt MD Discharging Provider: Jamaal Perales MD Anticipated date of discharge: 12/05/24 DS: Diagnosis Problem List Completed Was Problem List Reviewed/Reconciled?: Yes Hospital Course Hospital Course Hospital course: 69-year-old male with past medical history of polysubstance abuse who came to the ED due to worsening cellulitis. Patient has had recent ER visits for worsening cellulitis. Today 12/03/2024 however patient has been having increased swelling and redness in the right lower extremity and now unable to walk and he decided to come to the ED. Pain is more pronounced on the Right knee area is warm tender to touch however not red rest of the right lower extremity warm, swollen, red and tender. Patient at this time denies fevers, chills, nausea, vomiting, shortness of breath, chest pain. Patient will be admitted for right lower extremity cellulitis after failing outpatient antibiotic therapy. During hospital stay patient was managed with IV antibiotics with rapid improvement in initial admission symptoms. Patient was also evaluated for DVT and fractures with x-rays and ultrasound found negative. At this time patient is medically stable for discharge. Please take the following new medications: Sulfamethoxazole-Trimethoprim twice daily for 6 more days. Please see wound care and your Primary Care Provider within 1-2 weeks. Please take your other home medications as prescribed. Problem List: #Right lower extremity cellulitis, failed outpatient therapy #Polysubstance abuse Case discussed with my attending Dr. Jonathon Perales MD PGY-1 Status at Discharge Functional status at discharge: independent ambulation Overall status at discharge: patient is back to baseline Time Spent with Patient Time attestation: Total time spent providing and/or coordinating discharge services: Exam Vital Signs Temp Pulse Resp BP Pulse Ox O2 Del Method 96.7 F L 83 18 147/87 H 95 Room Air 12/05/24 12:00 12/05/24 12:00 12/05/24 12:00 12/05/24 12:00 12/05/24 12:00 12/05/24 12:00 Narrative Exam Physical Exam GENERAL: NAD, AAOx3, adentulous HEENT: Moist mucosa. Eyes open, symmetrical, & clear CARDIO: Heart RRR, no obvious murmurs PULM: No noted coughing/dyspnea CTA B/L, no R/W/R GI: Abdomen soft, nondistended, no pain on palpation. BSx4 SKIN/MSK/EXT: B/L lower extremity skin changes with crusting and graying, RLE warm, red, swollen and tender to touch more pronounced in the knee area- improving, Pedal pulses present B/L NEURO: AAOx3, no focal neuro deficits, able to move all 4 extremities Discharge Plan Plan Patient Disposition: HOME (Self Care) Care Plan Goals: Please take the following new medications: Sulfamethoxazole-Trimethoprim twice daily for 6 more days Please see wound care and your Primary Care Provider within 1-2 weeks. Please take your other home medications as prescribed. Prescriptions/Referrals Prescriptions/Med Rec: New sulfamethoxazole-trimethoprim 800-160 mg tablet 1 tab PO BID Qty: 12 0RF Continued docusate sodium [Colace] 100 mg capsule 100 mg PO BID Qty: 40 0RF ibuprofen 600 mg tablet 600 mg PO Q8H PRN (Reason: pain (scale score 4-6)) Qty: 15 0RF albuterol sulfate 90 mcg/actuation Hfa Aerosol Inhaler 2 puff INH TID Qty: 1 0RF Adult 50 Plus Probiotic 4 billion cell capsule 4,000 mmu cells PO QDAY Qty: 7 0RF Rx Instructions: administer with a meal dextromethorphan-guaifenesin 10-100 mg/5 mL liquid 10 ml PO Q8H PRN (Reason: cough) Qty: 500 0RF acetaminophen 500 mg capsule 1,000 mg PO TID Qty: 30 0RF Discontinued hydrocodone-acetaminophen 5-325 mg tablet 1 tab PO Q6H MDD 4 PRN (Reason: pain (scale score 7-10)) Qty: 28 0RF clindamycin HCl 300 mg capsule 300 mg PO Q8H Qty: 12 0RF clindamycin HCl 300 mg capsule 300 mg PO QID Qty: 40 0RF Referrals: Tim Perales MD [Primary Care Provider] - Patient/Caregiver Discharge Instructions Education Materials: Discharge Instructions for Cellulitis Print Language: Syriac Stand Alone Forms: Marcela Award Info., Patient Portal Info Letter Discharge Order Discharge Orders: Discharge (Routine); Ordered 12/05/24 Ordered By: Debora Juarez Quality Discharge Quality Measures VTE prophylaxis MD Attestestation MD Attestation I have examined the patient, reviewed labs and imaging findings, discussed the case with the resident(s), and reviewed entered orders. I agree with the plan of care as outlined in this note. Time spent: [address] Jonathon MD
== END 2024-12-05 12:10 | disposition home or self-care (01) | DRG 603 ==
LOC: SERX 13:06 → SERHOLD 15:22 → S3NX 16:40
PROVIDERS: Nurse Practitioner Primary Care; Student in an Organized Health Care Education/Training Program; Admitting Provider Student in an Organized Health Care Education/Training Program; Emergency Provider Family Medicine; PCP Family Medicine; Visit Provider Student in an Organized Health Care Education/Training Program
DX: L03.115 Cellulitis of right lower limb (principal); F17.200 Nicotine dependence, unspecified, uncomplicated; F15.10 Other stimulant abuse, uncomplicated; F12.10 Cannabis abuse, uncomplicated; R73.03 Prediabetes; E87.6 Hypokalemia; R26.2 Difficulty in walking, not elsewhere classified; Z88.6 Allergy status to analgesic agent; Z88.0 Allergy status to penicillin
CPT/HCPCS: 36415; 73590; 80053; 80202; 80307; 83605; 83735; 84100; 84145; 85025; 85610; 85652; 85730; 86140; 87040; 93225; 93971; 96365; 96366; 96367; 96372; 97161; 99285; G0378; J0696; J1643; J2270; J3370; J3371; J7040; S0077; A9270; J0736

== ENCOUNTER 2025-02-13 21:33 | Emergency (ER) | payer MEDICARE, MEDICAID, SELFPAY ==
[2025-02-13 21:34] VITALS: BMI 28.1
--- NOTE | 2025-02-13 23:05 | PC.NURSE ---
NO ANSWER AT ER LOBBY OR OUTSIDE ER TO BE SEEN BY PROVIDER.
--- NOTE | 2025-02-13 23:05 | PC.NURSE ---
pt did not answer when name was called and was not found outside.
--- NOTE | 2025-02-13 23:11 | PD.EDADDENDU ---
Emergency Room Addendum Addendum Narrative: When I looked for the patient, I was told he eloped. Сергей Russ MD
--- NOTE | 2025-02-14 00:44 | PC.NURSE ---
CALLED PATIENT IN THE LOBBY AND OUTSIDE, NO ANSWER RECEIVED.
--- NOTE | 2025-02-14 00:50 | PC.NURSE ---
CALLED PATIENT IN THE LOBBY AND OUTSIDE, NO ANSWER RECEIVED.
== END 2025-02-14 00:51 | disposition left against medical advice (07) ==
PROVIDERS: Emergency Provider Emergency Medicine
DX: Z53.21 Procedure and treatment not carried out due to patient leaving prior to being seen by health care provider (principal)

== ENCOUNTER 2025-07-07 18:48 | Emergency (ER) | payer MEDICARE, MEDICAID, SELFPAY ==
[2025-07-07 18:49] VITALS: BMI 28.1
--- NOTE | 2025-07-07 20:12 | PC.NURSE ---
CALLED FOR PT FROM LOBBY/OUTSIDE, NO ANSWERX1@ 2012
--- NOTE | 2025-07-07 22:06 | PC.NURSE ---
PT CALLED BACK FROM LOBBY NO ANSWER
--- NOTE | 2025-07-07 22:27 | PC.NURSE ---
PT CALLED BACK FROM LOBBY NO ANSWER
== END 2025-07-08 00:07 | disposition left against medical advice (07) ==
LOC: SERX 21:44
PROVIDERS: Emergency Provider Emergency Medicine
DX: Z53.21 Procedure and treatment not carried out due to patient leaving prior to being seen by health care provider (principal)
CPT/HCPCS: 87502; 99281

== ENCOUNTER 2025-07-08 03:42 | Emergency (ER) | payer MEDICARE, MEDICAID, SELFPAY ==
[2025-07-08] VITALS (8 sets, daily range): BP systolic 124–173; BP diastolic 68–98; PULSE 70–99; RESP 16–92; TEMP 36.5–38.3; O2SAT 91–97; BMI 28.1
--- NOTE | 2025-07-08 03:58 | EKG_ITS ---
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
--- NOTE | 2025-07-08 04:14 | XR_ITS ---
EXAMINATION: PA chest single view TECHNIQUE: Upright PA chest single view Date and time: July 08, 2025, 0423 hours, comparison August 30, 2023 INDICATIONS: Chest pain coughing fever chills wheezing today FINDINGS: Early bibasilar pneumonia Mild associated heart failure with enlarged left ventricle and prominent vascular congestion Prominent osteopenia IMPRESSION: Bibasilar pneumonia Early heart failure
--- NOTE | 2025-07-08 04:16 | EDRME_ITS ---
Rapid Medical Screening Exam [facility] Arrival date/time: 07/08/25 03:42 70M with history of drug/alcohol/smoking presents to ED with several days of GUADARRAMA, cough, fevers/chills, and some CP. Patient is wheezing on exam. Chief Complaint: Flu Like Symptoms Vital signs: Vital Signs Temperature 101.0 F H 07/08/25 03:47 Pulse Rate 99 07/08/25 03:47 Respiratory Rate 22 H 07/08/25 03:47 Blood Pressure 173/88 H 07/08/25 03:47 Pulse Oximetry (%) 93 L 07/08/25 03:47 Oxygen Delivery Method Room Air 07/08/25 03:47
[2025-07-08] MEDS: ACETAMINOPHEN 500 MG TABLET 1000 MG PO (04:24)
[2025-07-08] MEDS: DEXAMETHASONE SOD PHOS INJ 10 MG/ML VIAL PO (04:24)
[2025-07-08] MEDS: ALBUTEROL/IPRATROPIUM (Duoneb) RT SOL 3 ML NEBU 6 ML INH (04:35)
[2025-07-08 04:39] LABS: Influenza A Ag Negative; Influenza B Ag Negative
[2025-07-08 06:17] LABS: Lactate (Lactic Acid) 0.9 mMol/L (0.4-2.0)
[2025-07-08 06:21] LABS: Basophils # (Auto) 0.0 Thou/mm3 (0.0-0.2); Basophils % (Auto) 0 % (0-2.5); Eosinophils # (Auto) 0.0 Thou/mm3 (0.0-0.5); Eosinophils % (Auto) 0 % (0-10); Hematocrit 42.0 % (41.0-53.0); Hemoglobin 14.2 g/dL (13.5-16.0); Immature Granulocytes Auto 0.03 Thou/mm3 (0.00-0.00); Lymphocytes # (Auto) 1.2 Thou/mm3 (1.0-4.8); Lymphocytes % (Auto) 16 % (10-50); Mean Corpuscular HGB Conc 33.8 g/dl (31.0-37.0); Mean Corpuscular Hemoglobin 30.8 pg (25.0-35.0); Mean Corpuscular Volume 91 fL (80-100); Monocytes # (Auto) 0.6 Thou/mm3 (0.0-0.8); Monocytes % (Auto) 7 % (0-12); Neutrophils # (Auto) 5.8 Thou/mm3 (1.8-7.7); Neutrophils % (Auto) 76 % (37-80); Nucleated Red Blood Cell # 0.00 Thou/mm3 (0.00-0.00); Nucleated Red Blood Cell % 0 /100 WBC (0); Platelet Count 136 Thou/mm3 (140-440); RDW Standard Deviation 45.0 fL (35.1-43.9); Red Blood Count 4.61 Miln/mm3 (4.50-5.90); White Blood Count 7.7 Thou/mm3 (3.8-10.6)
[2025-07-08 06:46] LABS: B-Type Natriuretic Peptide < 20 pg/mL (0-100)
[2025-07-08 06:49] LABS: Alanine Aminotransferase 21 U/L (10-49); Albumin, Serum 3.9 gm/dL (3.4-4.8); Albumin/Globulin Ratio 1.3 (1.2-2.2); Alkaline Phosphatase 157 U/L (46-116); Anion Gap 11 (7-16); Aspartate Amino Transferase 29 U/L (0-34); BUN/Creatinine Ratio 10 Ratio (12-20); Bilirubin,Total 0.5 mg/dL (0.3-1.2); Blood Urea Nitrogen 9 mg/dL (9-23); Calcium 8.2 mg/dL (8.3-10.6); Calcium (Corrected) 8.3 mg/dL (8.5-10.1); Carbon Dioxide 24.1 mMol/L (20.0-31.0); Chloride 104 mMol/L (98-107); Creatinine (Component) 0.9 mg/dL (0.6-1.3); Estimated Creatinine Clearance 75.9 mL/min (>60); Globulin 2.9 gm/dL (2.3-3.5); Glucose 137 mg/dL (74-106); Osmolality,Calculated 278 (275-295); Potassium 3.6 mMol/L (3.4-5.1); Procalcitonin 0.07 ng/ml (0.0-0.49); Sodium 139 mMol/L (136-145); Total Protein 6.8 gm/dL (5.7-8.2); Troponin I < 0.002 ng/mL (0.0-0.045); eGFR > 60 See Note
[2025-07-08] MEDS: LEVOFLOXACIN 250 MG TABLET 500 MG PO (10:10)
--- NOTE | 2025-07-08 10:17 | PD.EDADULT ---
ED General RME/HPI General Chief complaint: Flu Like Symptoms Stated complaint: H/A, FLU LIKE SYMPTOMS Arrival date/time: 07/08/25 03:42 RME / HPI RME / HPI narrative: 07/08/25 03:42 70M with history of drug/alcohol/smoking presents to ED with several days of GUADARRAMA, cough, fevers/chills, and some CP. Patient is wheezing on exam. DR. GUSMAN MAIN ED EVALUATION 70 year old male with history of polysubstance abuse, venous insufficiency, and recurrent lower extremity cellulitis presents to the ED for evaluation of body aches, headache, cough, chills, and chest pain beginning 3 days ago. The chest pain is described as aching in sensation, rating 8/10 in severity. Denies fevers. Denies shortness of breath. Denies nausea, vomiting, diarrhea, constipation. Denies dysuria, urinary frequency and urgency. No known modifying/aggravating factors. Related Data Previous Rx's ?Medication ?Instructions ?Recorded docusate sodium 100 mg capsule 100 mg PO BID #40 caps 05/25/22 (Colace) ibuprofen 600 mg tablet 600 mg PO Q8H PRN pain (scale 05/25/22 score 4-6) #15 tabs albuterol sulfate 90 mcg/actuation 2 puff INH TID #1 inh 06/01/22 aerosol inhaler lactobacillus combination no.9 4 4,000 mmu cells PO QDAY #7 caps 06/01/22 billion cell capsule (Adult 50 Plus Probiotic) acetaminophen 500 mg capsule 1,000 mg (2 x 500 mg) PO TID #30 08/30/23 caps dextromethorphan-guaifenesin 10 10 ml PO Q8H PRN cough #500 mL 08/30/23 mg-100 mg/5 mL oral liquid sulfamethoxazole 800 1 tab PO BID #12 tabs 12/05/24 mg-trimethoprim 160 mg tablet levofloxacin 500 mg tablet 500 mg PO QDAY #5 tabs 07/08/25 Allergies Allergy/AdvReac Type Severity Reaction Status Date / Time aspirin Allergy Severe rash Verified 07/07/25 18:51 Penicillins Allergy Severe hives Verified 07/07/25 18:51 Review of Systems Review of Systems Systems Reviewed: All systems reviewed, normal except as documented Past Medical History Past Medical History CARDIAC: Positive Hypercholesterolemia GASTROINTESTINAL: Positive Gastrointestinal Disorders, Hepatitis, Ulcer and Gastroesophageal Reflux Disease GENITOURINARY: Positive Inguinal Hernia ENDOCRINE: Positive Hypoglycemia PSYCHO/SOCIAL: Positive Depression OTHER HISTORY: Positive Hospitalization Family History FAMILY HISTORY: Positive Family Cardiac Disorders and Family Cancer Surgical History SURGICAL: Positive Abdominal Surgery Social History SMOKING STATUS: Current every day smoker 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 [employer] ED Exam Narrative Physical exam: GENERAL APPEARANCE: alert and oriented x 4, well-developed, well-nourished, no acute distress HEENT: Normocephalic, atraumatic; pupils equal, round, reactive to light; EOMI; mucous membranes pink, moist; oropharynx clear NECK: Supple LUNGS: Mild wheezing; no rales, no rhonchi HEART: Regular rate, regular rhythm; normal S1, S2; no murmurs ABDOMEN: non distended; normal BS; soft, no tenderness, no guarding, no rebound; no masses, no organomegaly, no hernia BACK: no CVA tenderness EXTREMITIES: atraumatic; no edema NEUROLOGIC: awake; alert and oriented x4; cranial nerves II-XII grossly intact; no focal sensory or motor deficits PSYCHIATRIC: appropriate mood and affect SKIN: warm, dry, normal color; no rashes Course Course Course Narrative: Patient remains clinically stable throughout the emergency department visit. We reviewed all the results, analysis, and treatment plans. Patient is amenable to discharge. Strict return precautions were outlined. Quality Measures none Orders Category Date Time Status Bedside COVID-19 Antigen Test NOW Care 07/08/25 03:47 Completed EKG (ED ONLY) *Do not use* NOW Care 07/08/25 03:58 Completed EKG (ED Only) Stat Exams 07/08/25 03:58 Draft XR chest 1V portable Stat Exams 07/08/25 04:14 Completed B-Type Natriuretic Peptide Stat Lab 07/08/25 06:11 Completed CBC Stat Lab 07/08/25 06:11 Completed Comprehensive Metabolic Panel Stat Lab 07/08/25 06:11 Completed Influenza A & B Rapid Panel Stat Lab 07/08/25 04:00 Completed Lactate (Lactic Acid) Stat Lab 07/08/25 06:11 Completed Procalcitonin Stat Lab 07/08/25 06:11 Completed Troponin I Stat Lab 07/08/25 06:11 Completed Acetaminophen Tab [Tylenol ES Tab] Med 07/08/25 04:14 Discontinued 1,000 mg PO X1 ONE Albuterol/Ipratr Rt Angie [Duoneb Rt Angie] Med 07/08/25 04:14 Discontinued 6 ml INH X1 ONE Dexamethasone Inj [Decadron Inj] Med 07/08/25 04:14 Discontinued 10 mg PO X1 ONE Levofloxacin [Levaquin] Med 07/08/25 09:59 Discontinued 500 mg PO X1 ONE Oxygen Delivery NOW RT 07/08/25 04:18 Completed Vital Signs Vital signs: Vital Signs Temperature 101.0 F H 07/08/25 03:47 Pulse Rate 99 07/08/25 03:47 Respiratory Rate 22 H 07/08/25 03:47 Blood Pressure 173/88 H 07/08/25 03:47 Pulse Oximetry (%) 93 L 07/08/25 03:47 Oxygen Delivery Method Room Air 07/08/25 03:47 Pulse ox is 93% on room air which is adequate. Discharge Plan Plan Patient Disposition: HOME (Self Care) Prescriptions/Referrals Prescriptions/Med Rec: New levofloxacin 500 mg tablet 500 mg PO QDAY Qty: 5 0RF No Action docusate sodium [Colace] 100 mg capsule 100 mg PO BID Qty: 40 0RF ibuprofen 600 mg tablet 600 mg PO Q8H PRN (Reason: pain (scale score 4-6)) Qty: 15 0RF albuterol sulfate 90 mcg/actuation Hfa Aerosol Inhaler 2 puff INH TID Qty: 1 0RF Adult 50 Plus Probiotic 4 billion cell capsule 4,000 mmu cells PO QDAY Qty: 7 0RF Rx Instructions: administer with a meal dextromethorphan-guaifenesin 10-100 mg/5 mL liquid 10 ml PO Q8H PRN (Reason: cough) Qty: 500 0RF acetaminophen 500 mg capsule 1,000 mg PO TID Qty: 30 0RF sulfamethoxazole-trimethoprim 800-160 mg tablet 1 tab PO BID Qty: 12 0RF Referrals: Tim Perales MD [Primary Care Provider, Family Practice] - In 1 week Problem List Clinical Impression: Pneumonia Patient/Caregiver Discharge Instructions Education Materials: ED Pneumonia (Adult) Print Language: Yi Stand Alone Forms: Marcela Award Info., Patient Portal Info Letter MDM Narrative MDM hospital course (for use when minimal MDM required): Rosey Sidhu am scribing for and in the presence of Dr. Gusman. Clinical Information Provided by: patient Medical Records reviewed [facility] Meds/Rx considered, not ordered None Labs/Rad/Tests considered, not ordered None Chronic Illness/Social Conditions which may negatively complicate care or outcome(s)-explain: ETOH/drugs/substance abuse EKG Interpretation EKG #1: EKG Interpretation: EKG @ 04:05 AM. Sinus tachycardia, rate 101, left anterior fascicular block, no STEMI. Labs Labs: interpreted by mt Lab(s) Interpretation(s): CBC with no acute findings CMP with no acute findings Influenza A/B negative Imaging Imaging Interpretation(s): Ordering Physician: Brent Souza PA-C Date of Service: 07/08/25 Procedure(s): XR chest 1V portable Accession Number(s): [id number] cc: Tim Perales MD; Negro Ramos MD; Brent Souza PA-C~ EXAMINATION: PA chest single view TECHNIQUE: Upright PA chest single view Date and time: July 08, 2025, 0423 hours, comparison August 30, 2023 INDICATIONS: Chest pain coughing fever chills wheezing today FINDINGS: Early bibasilar pneumonia Mild associated heart failure with enlarged left ventricle and prominent vascular congestion Prominent osteopenia IMPRESSION: Bibasilar pneumonia Early heart failure Dictated By: Negro Ramos MD Signed By: <Electronically signed by Negro Ramos MD in OV> 07/08/25 0753 Medication Administration(s) Medication Administration History Discontinued Medications Acetaminophen (Acetaminophen 500 Mg Tablet) 1,000 mg PO X1 ONE Stop: 07/08/25 04:15 Last Admin: 07/08/25 04:24 Dose: 1,000 mg Documented By: SM Albuterol/Ipratropium (Albuterol/Ipratropium (Duoneb) Rt Angie 3 Ml Nebu) 6 ml INH X1 ONE Stop: 07/08/25 04:15 Last Admin: 07/08/25 04:35 Dose: 6 ml Documented By: CS Dexamethasone Sodium Phosphate (Dexamethasone Sod Phos Inj 10 Mg/Ml Vial) 10 mg PO X1 ONE Stop: 07/08/25 04:15 Last Admin: 07/08/25 04:24 Dose: 10 mg Documented By: SM Comments: po Levofloxacin (Levofloxacin 250 Mg Tablet) 500 mg PO X1 ONE Stop: 07/08/25 10:00 Last Admin: 07/08/25 10:10 Dose: 500 mg Documented By: GM See above Diagnosis Diagnoses ruled out and/or further discussions: Pneumonia
== END 2025-07-08 10:20 | disposition home or self-care (01) ==
PROVIDERS: Physician Assistant; Emergency Provider Emergency Medicine; PCP Family Medicine; Referring Provider Emergency Medicine
DX: J18.9 Pneumonia, unspecified organism (principal); I50.9 Heart failure, unspecified
CPT/HCPCS: 36415; 71045; 80053; 83605; 83880; 84145; 84484; 85025; 87502; 87811; 93005; 94640; 99285; A9270; J1100

== ENCOUNTER 2025-07-09 22:17 | Emergency (ER) | payer MEDICARE, MEDICAID, SELFPAY ==
[2025-07-09 22:18] VITALS: BMI 28.1
[2025-07-09 22:41] VITALS: BP 158/94; PULSE 100; RESP 20; TEMP 36.7; O2SAT 95
--- NOTE | 2025-07-09 22:49 | PD.EDRME ---
Rapid Medical Screening Exam [facility] Arrival date/time: 07/09/25 22:17 70M with history of drug/alcohol/smoking presents to ED with continued SOB. Patient was here yesterday with diagnosis of PNA. Patient has been taking his levofloxacin. Chief Complaint: Shortness of Breath/Dyspnea Vital signs: Vital Signs Temperature 98.1 F 07/09/25 22:41 Pulse Rate 100 07/09/25 22:41 Respiratory Rate 20 07/09/25 22:41 Blood Pressure 158/94 H 07/09/25 22:41 Pulse Oximetry (%) 95 07/09/25 22:41 Oxygen Delivery Method Room Air 07/09/25 22:41 Exam: Clear Clinical Impression: CAP vs PE
[2025-07-09 23:16] LABS: Lactate (Lactic Acid) 1.2 mMol/L (0.4-2.0)
[2025-07-09 23:19] LABS: Basophils # (Auto) 0.0 Thou/mm3 (0.0-0.2); Basophils % (Auto) 0 % (0-2.5); Eosinophils # (Auto) 0.0 Thou/mm3 (0.0-0.5); Eosinophils % (Auto) 1 % (0-10); Hematocrit 43.4 % (41.0-53.0); Hemoglobin 14.5 g/dL (13.5-16.0); Immature Granulocytes Auto 0.03 Thou/mm3 (0.00-0.00); Lymphocytes # (Auto) 1.1 Thou/mm3 (1.0-4.8); Lymphocytes % (Auto) 20 % (10-50); Mean Corpuscular HGB Conc 33.4 g/dl (31.0-37.0); Mean Corpuscular Hemoglobin 30.6 pg (25.0-35.0); Mean Corpuscular Volume 92 fL (80-100); Monocytes # (Auto) 0.4 Thou/mm3 (0.0-0.8); Monocytes % (Auto) 8 % (0-12); Neutrophils # (Auto) 3.9 Thou/mm3 (1.8-7.7); Neutrophils % (Auto) 70 % (37-80); Nucleated Red Blood Cell # 0.00 Thou/mm3 (0.00-0.00); Nucleated Red Blood Cell % 0 /100 WBC (0); Platelet Count 136 Thou/mm3 (140-440); RDW Standard Deviation 44.5 fL (35.1-43.9); Red Blood Count 4.74 Miln/mm3 (4.50-5.90); White Blood Count 5.5 Thou/mm3 (3.8-10.6)
[2025-07-09 23:55] LABS: Alanine Aminotransferase 21 U/L (10-49); Albumin, Serum 4.2 gm/dL (3.4-4.8); Albumin/Globulin Ratio 1.2 (1.2-2.2); Alkaline Phosphatase 149 U/L (46-116); Anion Gap 7 (7-16); Aspartate Amino Transferase 29 U/L (0-34); BUN/Creatinine Ratio 10 Ratio (12-20); Bilirubin,Total 0.5 mg/dL (0.3-1.2); Blood Urea Nitrogen 10 mg/dL (9-23); Calcium 9.1 mg/dL (8.3-10.6); Calcium (Corrected) 9.1 mg/dL (8.5-10.1); Carbon Dioxide 27.0 mMol/L (20.0-31.0); Chloride 103 mMol/L (98-107); Creatinine (Component) 1.0 mg/dL (0.6-1.3); Estimated Creatinine Clearance 68.3 mL/min (>60); Globulin 3.5 gm/dL (2.3-3.5); Glucose 112 mg/dL (74-106); Osmolality,Calculated 273 (275-295); Potassium 3.9 mMol/L (3.4-5.1); Procalcitonin 0.06 ng/ml (0.0-0.49); Sodium 137 mMol/L (136-145); Total Protein 7.7 gm/dL (5.7-8.2); eGFR > 60 See Note
[2025-07-10 00:41] LABS: B-Type Natriuretic Peptide 30 pg/mL (0-100)
--- NOTE | 2025-07-10 03:02 | PD.EDSOB ---
ED SOB =RME/HPI General Chief Complaint: Shortness of Breath/Dyspnea Stated Complaint: PERSISTANT SOB Arrival date/time: 07/09/25 22:17 RME / HPI RME / HPI Narrative: 07/09/25 22:17 70M with history of drug/alcohol/smoking presents to ED with continued SOB. Patient was here yesterday with diagnosis of PNA. Patient has been taking his levofloxacin. Dr. Jhon?s Main ED Evaluation: Related Data Previous Rx's ?Medication ?Instructions ?Recorded docusate sodium 100 mg capsule 100 mg PO BID #40 caps 05/25/22 (Colace) ibuprofen 600 mg tablet 600 mg PO Q8H PRN pain (scale 05/25/22 score 4-6) #15 tabs albuterol sulfate 90 mcg/actuation 2 puff INH TID #1 inh 06/01/22 aerosol inhaler lactobacillus combination no.9 4 4,000 mmu cells PO QDAY #7 caps 06/01/22 billion cell capsule (Adult 50 Plus Probiotic) acetaminophen 500 mg capsule 1,000 mg (2 x 500 mg) PO TID #30 08/30/23 caps dextromethorphan-guaifenesin 10 10 ml PO Q8H PRN cough #500 mL 08/30/23 mg-100 mg/5 mL oral liquid sulfamethoxazole 800 1 tab PO BID #12 tabs 12/05/24 mg-trimethoprim 160 mg tablet levofloxacin 500 mg tablet 500 mg PO QDAY #5 tabs 07/08/25 Allergies Allergy/AdvReac Type Severity Reaction Status Date / Time aspirin Allergy Severe rash Verified 07/09/25 22:21 Penicillins Allergy Severe hives Verified 07/09/25 22:21 Review of Systems Review of Systems Systems Reviewed: All systems reviewed, normal except as documented Past Medical History Past Medical History NEUROLOGIC: Negative Neurological Disorders or Seizures CARDIAC: Positive Hypercholesterolemia; Negative Cardiac Disorders, Congestive Heart Failure, Edema, Cellulitis or Varicose Veins RESPIRATORY: Negative Chronic Obstructive Pulmonary Disease (COPD), Asthma, Tuberculosis, Pulmonary Embolism or Sleep Apnea GASTROINTESTINAL: Positive Gastrointestinal Disorders, Hepatitis, Ulcer and Gastroesophageal Reflux Disease; Negative Pancreatitis GENITOURINARY: Positive Inguinal Hernia; Negative Genitourinary Disorders or Renal Disease MUSCULOSKELETAL: Negative Musculoskeletal Disorders ENDOCRINE: Positive Hypoglycemia; Negative Endocrine Disorders, Diabetes Mellitus Type 1 or Diabetes Mellitus Type 2 HEMATOLOGIC: Negative Blood Disorders or Sickle Cell Disease PSYCHO/SOCIAL: Positive Depression OTHER HISTORY: Positive Hospitalization; Negative Autoimmune Disease, Shingles, Falls, Blood Transfusions, Blood Transfusion Reaction, Anesthesia Reactions, Chemotherapy, Radiation Therapy, MRSA, Chicken Pox, Measles, Mumps or Cancer Family History FAMILY HISTORY: Positive Family Cardiac Disorders and Family Cancer; Negative Family Psychiatric Problems, Family Respiratory Disorders, Family Gastrointestinal Problems, Family Surgery or Family Anesthesia Reaction Surgical History SURGICAL: Positive Abdominal Surgery; Negative Pacemaker Social History SMOKING STATUS: Current every day smoker 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 OCCUPATION: retired [employer] Quality Measures none Orders Category Date Time Status BNP [B-Type Natriuretic Peptide] Stat Lab 07/09/25 23:00 Completed CBC Stat Lab 07/09/25 23:00 Completed CMP [Comprehensive Metabolic Panel] Stat Lab 07/09/25 23:00 Completed Lactate (Lactic Acid) Stat Lab 07/09/25 23:00 Completed Procalcitonin Stat Lab 07/09/25 23:00 Completed Vital Signs Vital signs: Vital Signs Temperature 98.1 F 07/09/25 22:41 Pulse Rate 100 07/09/25 22:41 Respiratory Rate 20 07/09/25 22:41 Blood Pressure 158/94 H 07/09/25 22:41 Pulse Oximetry (%) 95 07/09/25 22:41 Oxygen Delivery Method Room Air 07/09/25 22:41 Shortness of Breath / Dyspnea MDM Narrative MDM Narrative:: Scribe Attestation: 07/10/25 - Annia Sidhu am scribing for and in the presence of Dr. John. Patient data External records reviewed:: [facility] previous records (Per chart review, patient was seen here on 07/08/25 for pneumonia.) Clinical information provided by:: patient Social determinants that could affect healthcare access:: substance use Patient has the following chronic illnesses:: polysubstance abuse, venous insufficiency How is presenting disease/condition affected by chronic disease/condition?: uneffected by Evaluation data The following diagnostics were reviewed and interpreted by me:: lab results Lab and/or radiology exams considered but not ordered:: none Interpretation Summary: See MDM. Medications / Prescriptions Medications or Prescriptions considered but not ordered:: none Consultations Consultation(s) initiated? (list below): No Discharge Plan Prescriptions/Referrals Prescriptions/Med Rec: No Action docusate sodium [Colace] 100 mg capsule 100 mg PO BID Qty: 40 0RF ibuprofen 600 mg tablet 600 mg PO Q8H PRN (Reason: pain (scale score 4-6)) Qty: 15 0RF albuterol sulfate 90 mcg/actuation Hfa Aerosol Inhaler 2 puff INH TID Qty: 1 0RF Adult 50 Plus Probiotic 4 billion cell capsule 4,000 mmu cells PO QDAY Qty: 7 0RF Rx Instructions: administer with a meal dextromethorphan-guaifenesin 10-100 mg/5 mL liquid 10 ml PO Q8H PRN (Reason: cough) Qty: 500 0RF acetaminophen 500 mg capsule 1,000 mg PO TID Qty: 30 0RF sulfamethoxazole-trimethoprim 800-160 mg tablet 1 tab PO BID Qty: 12 0RF levofloxacin 500 mg tablet 500 mg PO QDAY Qty: 5 0RF Referrals: Nilay Sams PA-C [Primary Care Provider] - In 1 week Patient/Caregiver Discharge Instructions Print Language: Yi
== END 2025-07-10 05:45 | disposition left against medical advice (07) ==
LOC: SERX 23:04
PROVIDERS: Physician Assistant; Emergency Provider Emergency Medicine; PCP Physician Assistant
DX: Z53.21 Procedure and treatment not carried out due to patient leaving prior to being seen by health care provider (principal)
CPT/HCPCS: 36415; 80053; 83605; 83880; 84145; 85025; 99282